=== PATIENT | male | born 1980 | race Two or more races ===

== ENCOUNTER 2016-10-27 23:33 | Emergency (ER) | payer MEDICAID ==
[~2016-10-27] VITALS: Ht 175.3 cm; Wt 113.4 kg
[2016-10-28 00:34] LABS: Basophils # (auto) 0.2 uL; Basophils % (auto) 2.7 % (0.0-2.0); Eosinophils # (auto) 0 uL; Eosinophils % (auto) 0.5 % (0.0-7.0); Hematocrit 47.6 % (41.0-53.0); Lymphocytes # (auto) 0.9 uL; Lymphocytes % (auto) 10.9 % (10.0-50.0); Mean Corpuscular Hemoglobin 30.2 pg (28.0-32.0); Mean Corpuscular Hgb Conc. 33.6 g/dL (32.0-36.0); Mean Corpuscular Volume 89.8 fL (80.0-100.0); Mean Platelet Volume 6.7 fL (7.4-10.4); Monocytes # (auto) 0.2 uL; Monocytes % (auto) 3.1 % (0.0-12.0); Neutrophils # (auto) 6.5 uL; Neutrophils % (auto) 82.8 % (37.0-80.0); Platelet Count (auto) 245 10^3/uL (140-450); Red Cell Distribution Width 11.2 % (11.6-16.0); White Blood Cell 7.8 10^3/uL (4.4-10.8)
[2016-10-28 00:43] LABS: Salicylate < 1.7 mg/dL (2.8-20.0)
[2016-10-28 00:44] LABS: Acetaminophen < 2.0 ug/mL (10-30)
[2016-10-28 00:45] LABS: Albumin 3.8 g/dL (3.4-5.0); BUN/Creatinine Ratio 13.6; Calcium 8.4 mg/dL (8.5-10.1); Potassium 4.7 mmol/L (3.5-5.1)
[2016-10-28] MEDS ORDERED: SODIUM CHLORIDE 0.9% 1,000 ML IV ONE (00:45)
[2016-10-28 00:46] LABS: Bilirubin, Total 0.3 mg/dL (0.2-1.0); Total Protein 7.9 g/dL (6.4-8.2)
[2016-10-28 01:45] LABS: Urine RBC None Seen /hpf (0 - 3)
[2016-10-28] MEDS ORDERED: MORPHINE SULF INJ 2 MG/ML SYRINGE 1ML IV ONE (01:45)
[2016-10-28] MEDS ORDERED: ONDANSETRON HCL 4 MG/2 ML VIAL IV ONE (01:45)
[2016-10-28 01:59] LABS: Urine Bilirubin Negative (Negative); Urine Blood Negative /uL (Negative); Urine Color Yellow (Yellow); Urine Glucose Normal (Normal); Urine Ketone Negative (Negative); Urine Mucus FEW (None Seen); Urine Nitrite Negative (Negative); Urine Urobilinogen Normal (Negative)
[2016-10-28] MEDS ORDERED: SUMAtriptan SUCCINATE 25 MG TAB PO ONE (02:00)
[2016-10-28 03:06] VITALS: BP 116/76
== END 2016-10-28 03:13 | disposition home or self-care (01) ==
LOC: EDBD 23:33 → ER 23:33
DX: G43.909 Migraine, unspecified, not intractable, without status migrainosus (principal); F10.120 Alcohol abuse with intoxication, uncomplicated; F41.9 Anxiety disorder, unspecified; R56.9 Unspecified convulsions; F19.10 Other psychoactive substance abuse, uncomplicated
CPT/HCPCS: 36415; 71010; 80053; 80307; 80320; 80329; 81001; 85025; 96360; 99285; J7030